=== PATIENT | female | born 1975 | race African-American/Black ===

== ENCOUNTER 2024-10-30 12:01 | Emergency (ER) | payer BC, MEDICAID ==
[~2024-10-30] VITALS: Ht 154.9 cm; Wt 64.0 kg
[~2024-10-30 12:01] MED LIST: APIX2.5T MT; FURO20TA4 MT; PANT20TA17 MT; PRAZ1CAP5 PO; PROP50TA3 MT; TRIA1TAB92 PO
[2024-10-30 12:09] VITALS: BP 158/82; TEMP 36.6; O2SAT 99
[2024-10-30 12:10] VITALS: PULSE 82; RESP 20; O2SAT 98
[2024-10-30 13:14] LABS: HEMATOCRIT. 37.6 % (36.0-48.0); HEMOGLOBIN. 12.1 g/dL (12.0-16.0); RED BLOOD CELL COUNT 4.44 mill/uL (4.2-5.4); WHITE BLOOD COUNT 5.5 x1000/uL (4.5-11.0)
[2024-10-30 13:15] LABS: BASOPHILS % 0.6 % (0.0-2.0); DIFFERENTIAL COMMENT 0; EOSINOPHILS % 1.2 % (0.0-5.0); LYMPHOCYTES % 34.2 % (20.0-50.0); MEAN CORPUSCULAR HEMOGLOBIN 27.2 pg (28.0-32.0); MEAN CORPUSCULAR HGB CONC 32.2 g/dL (31.0-37.0); MEAN CORPUSCULAR VOLUME 84.7 fL (81.0-99.0); MEAN PLATELET VOLUME 9.4 fl (7.4-10.4); MONOCYTES % 12.5 % (2.0-8.0); NEUTROPHILS % 51.5 % (40.0-76.0); PLATELET 222 x1000/uL (130-400); RED CELL DISTRIBUTION WIDTH 19.1 % (11.6-14.6)
[2024-10-30 13:26] LABS: INR 1.1; PARTIAL THROMBOPLASTIN TIME 26.2 sec (23.4-31.0); PROTHROMBIN TIME 11.6 sec (9.6-11.0)
[2024-10-30 13:30] LABS: CHLORIDE 101 mEq/L (98-107); POTASSIUM 3.3 mEq/L (3.5-5.1); SODIUM 139 mEq/L (136-145)
[2024-10-30 13:31] LABS: CALCIUM 9.6 mg/dL (8.7-10.4); CARBON DIOXIDE 28 mEq/L (21-32)
[2024-10-30 13:36] LABS: CREATININE 0.4 mg/dL (0.6-1.0); GLUCOSE 132 mg/dL (70-105); TROPONIN I HIGH SENSITIVITY 13 ng/L (3.0-34); UREA NITROGEN BLOOD 6 mg/dL (9-23)
[2024-10-30 13:37] LABS: ETHANOL BLOOD 75 mg/dL (<10)
[2024-10-30 13:38] LABS: ALANINE AMINOTRANSFERASE 29 IU/L (10-49); ALBUMIN 3.8 g/dL (3.2-4.8); ASPARTATE AMINOTRANSFERASE 54 IU/L (<34); BILIRUBIN DIRECT 0.8 mg/dL (<=3.0); BILIRUBIN TOTAL 1.3 mg/dL (0.1-1.0); PROTEIN TOTAL 8.4 g/dL (6.0-8.3)
[2024-10-30 13:41] LABS: THYROID STIMULATING HORMONE < 0.10 uIU/mL (0.55-4.78)
[2024-10-30 13:44] LABS: HCG SCREEN NEGATIVE
[2024-10-30 15:01] LABS: CLARITY URINE CLEAR (CLEAR); COLOR URINE YELLOW (YELLOW); PROTEIN URINE 1+ (NEGATIVE); SPECIFIC GRAVITY URINE <1.005 (1.005-1.030)
[2024-10-30 15:02] LABS: GLUCOSE URINE NEGATIVE (NEGATIVE); KETONES URINE NEGATIVE (NEGATIVE); LEUKOCYTE ESTERASE URINE NEGATIVE (NEGATIVE); NITRITE URINE NEGATIVE (NEGATIVE); OCCULT BLOOD URINE TRACE (NEGATIVE); UROBILINOGEN URINE 0.2 E.U./dL (0.2-1.0)
[2024-10-30] MEDS ORDERED: APIX2.5T MT (15:06)
[2024-10-30] MEDS ORDERED: PROP50TA3 MT (15:06)
[2024-10-30] MEDS ORDERED: FURO20TA4 MT (15:06)
[2024-10-30 15:39] LABS: BACTERIA URINE NONE SEEN; RBC URINE NONE SEEN /hpf (0-2); SQUAMOUS EPITHELIAL CELL URINE FEW /lpf (RARE/1+); WBC URINE 0-2 /hpf (0-2)
[2024-11-07] MEDS ORDERED: APIX2.5T PO (13:39)
[2024-11-07] MEDS ORDERED: PRAZ1CAP5 PO (13:39)
[2024-11-07] MEDS ORDERED: PROP50TA3 PO (13:39)
[2024-11-07] MEDS ORDERED: PANT20TA17 PO (13:39)
== END 2024-10-30 15:30 | disposition home or self-care (01) ==
LOC: ER 12:01
DX: I50.9 Heart failure, unspecified (principal); E05.90 Thyrotoxicosis, unspecified without thyrotoxic crisis or storm; F10.129 Alcohol abuse with intoxication, unspecified; I11.0 Hypertensive heart disease with heart failure; D64.9 Anemia, unspecified; Z79.899 Other long term (current) drug therapy; Z90.49 Acquired absence of other specified parts of digestive tract; Z88.0 Allergy status to penicillin; Y90.9 Presence of alcohol in blood, level not specified
CPT/HCPCS: 36415; 71045; 76705; 80048; 80076; 80320; 81003; 83880; 84443; 84484; 84703; 85025; 86850; 86900; 93005; 99285; G0480

== ENCOUNTER 2024-11-22 10:05 | Inpatient (IN) | payer MEDICAID ==
[~2024-11-22] VITALS: Ht 165.1 cm; Wt 70.3 kg
[~2024-11-22 10:05] MED LIST changes: -APIX2.5T MT; +APIX2.5T PO; -FURO20TA4 MT; -PANT20TA17 MT; +PANT20TA17 PO; -PROP50TA3 MT; +PROP50TA3 PO; -TRIA1TAB92 PO
[2024-11-22] MEDS: DILTIAZEM HCL 5MG/ML 5ML VIAL IV ONE (12:11)
[2024-11-22 12:12] LABS: BASOPHILS % 0.7 % (0.0-2.0); EOSINOPHILS % 0.1 % (0.0-5.0); HEMATOCRIT. 40.7 % (36.0-48.0); LYMPHOCYTES % 18.3 % (20.0-50.0); MEAN CORPUSCULAR HGB CONC 31.8 g/dL (31.0-37.0); MEAN PLATELET VOLUME 9.3 fl (7.4-10.4); MONOCYTES % 9.3 % (2.0-8.0); NEUTROPHILS % 71.6 % (40.0-76.0); PLATELET 236 x1000/uL (130-400); RED BLOOD CELL COUNT 4.79 mill/uL (4.2-5.4); RED CELL DISTRIBUTION WIDTH 18.8 % (11.6-14.6); WHITE BLOOD COUNT 8.4 x1000/uL (4.5-11.0)
[2024-11-22 12:30] LABS: CHLORIDE 106 mEq/L (98-107); POTASSIUM 4.6 mEq/L (3.5-5.1); SODIUM 140 mEq/L (136-145)
[2024-11-22 12:31] LABS: CARBON DIOXIDE 26 mEq/L (21-32)
[2024-11-22 12:32] LABS: CALCIUM 9.9 mg/dL (8.7-10.4)
[2024-11-22 12:35] LABS: INR 1.1; PARTIAL THROMBOPLASTIN TIME 27.9 sec (23.4-31.0); PROTHROMBIN TIME 11.9 sec (9.6-11.0)
[2024-11-22] MEDS: MORPHINE SULFATE 4 MG/ML INJ (FOR IV/IM USE) IV ONE (12:41)
[2024-11-22] MEDS: ONDANSETRON HCL 4MG/2ML INJ IV ONE (12:43)
[2024-11-22] MEDS ORDERED: DILTIAZEM HCL 60MG TABLET PO ONE (12:45)
[2024-11-22] MEDS ORDERED: MAGNESIUM/ALUMINUM HYDROXIDE/SIMETHICONE 30ML UDC PO PRN (14:15)
[2024-11-22] MEDS ORDERED: NA PHOS,M-B/NA PHOS,DI-BA ENEMA 118ML PR PRN (14:15)
[2024-11-22] MEDS ORDERED: ACETAMINOPHEN 325MG TABLET PO PRN (14:15)
[2024-11-22] MEDS ORDERED: DOCUSATE SODIUM 100MG CAPSULE PO PRN (14:15)
[2024-11-22] MEDS ORDERED: IPRATROPIUM/ALBUTEROL 0.5-3(2.5)MG/3ML NEB HHN PRN (14:15)
[2024-11-22] MEDS ORDERED: GUAIFENESIN 200MG/10ML SUGAR FREE UDC PO PRN (14:15)
[2024-11-22] MEDS ORDERED: HYDROCODONE/ACETAMINOPHEN 5/325MG TABLET PO PRN (14:15)
[2024-11-22] MEDS ORDERED: ENOXAPARIN 80MG/0.8ML SYR SUBCUT NR (14:30)
[2024-11-22] MEDS ORDERED: NALOXONE HCL 0.4MG/ML VIAL IV PRN (14:45)
[2024-11-22 14:55] LABS: CREATININE 0.6 mg/dL (0.6-1.0); GLUCOSE 99 mg/dL (70-105); UREA NITROGEN BLOOD 10 mg/dL (9-23)
[2024-11-22 14:56] LABS: ETHANOL BLOOD 86 mg/dL (<10); TROPONIN I HIGH SENSITIVITY 23 ng/L (3.0-34)
[2024-11-22 14:57] LABS: ALANINE AMINOTRANSFERASE 28 IU/L (10-49); ASPARTATE AMINOTRANSFERASE 61 IU/L (<34); BILIRUBIN DIRECT 0.4 mg/dL (<=3.0)
[2024-11-22 14:58] LABS: PROTEIN TOTAL 8.5 g/dL (6.0-8.3)
[2024-11-22 14:59] LABS: T4 FREE 2.68 ng/dL (0.89-1.76); THYROID STIMULATING HORMONE < 0.10 uIU/mL (0.55-4.78)
[2024-11-22] MEDS: ACETAMINOPHEN 325MG TABLET PO PRN (15:14)
[2024-11-22] MEDS ORDERED: DIAZEPAM 2 MG TABLET PO ONE (15:45)
[2024-11-22] MEDS ORDERED: LORAZEPAM 2MG/ML INJ IV PRN (15:45)
[2024-11-22] MEDS: PROPRANOLOL HCL 1MG/ML AMPULE IV NR (16:08)
[2024-11-22] MEDS: PROPYLTHIOURACIL 50MG TABLET PO SCH ×2 (16:22→20:43)
[2024-11-22 16:45] LABS: PHOSPHORUS 4.1 mg/dL (2.5-4.9)
[2024-11-22] MEDS: LORAZEPAM 2MG/ML INJ IV PRN (16:46)
[2024-11-22 19:13] LABS: CLARITY URINE CLEAR (CLEAR); COLOR URINE YELLOW (YELLOW); GLUCOSE URINE NEGATIVE (NEGATIVE); KETONES URINE NEGATIVE (NEGATIVE); LEUKOCYTE ESTERASE URINE NEGATIVE (NEGATIVE); NITRITE URINE NEGATIVE (NEGATIVE); OCCULT BLOOD URINE TRACE (NEGATIVE); PH URINE 5.5 (4.5-8.0); PROTEIN URINE 1+ (NEGATIVE); SPECIFIC GRAVITY URINE 1.012 (1.005-1.030); UROBILINOGEN URINE 0.2 E.U./dL (0.2-1.0)
[2024-11-22 19:33] LABS: *AMPHETAMINES SCREEN URINE PRESUMPTIVE POSITIVE (NEGATIVE); *BARBITURATES SCREEN URINE NEGATIVE (NEGATIVE); *BENZODIAZEPINES SCREEN URINE NEGATIVE (NEGATIVE)
[2024-11-22 19:34] LABS: *COCAINE SCREEN URINE NEGATIVE (NEGATIVE); CANNABINOID URINE SCREEN NEGATIVE (NEGATIVE); ECSTASY MDMA SCREEN URINE CONF.TEST INDICATED (NEGATIVE); METHADONE URINE SCREEN NEGATIVE (NEGATIVE); OPIATES URINE SCREEN PRESUMPTIVE POSITIVE (NEGATIVE); PHENCYCLIDINE URINE SCREEN NEGATIVE (NEGATIVE)
[2024-11-22 19:55] LABS: BACTERIA URINE NONE SEEN; HYALINE CASTS URINE 0-5 /lpf; SQUAMOUS EPITHELIAL CELL URINE NONE SEEN /lpf (RARE/1+); WBC URINE 0-2 /hpf (0-2)
[2024-11-22 19:56] LABS: RBC URINE 0-2 /hpf (0-2)
[2024-11-22 20:00] VITALS: BP 137/118; PULSE 77; RESP 20; TEMP 36.7; O2SAT 100
[2024-11-22] MEDS: MAGNESIUM 4 G PREMIX 100 ML IV NR (20:45)
[2024-11-22] MEDS: PROPRANOLOL HCL 10MG TABLET PO SCH (20:45)
[2024-11-22 20:47] VITALS: BP 208/148; PULSE 123; RESP 22; TEMP 36.7
[2024-11-22] MEDS ORDERED: PROPRANOLOL HCL 10MG TABLET PO SCH (21:00)
[2024-11-22 22:37] LABS: TROPONIN I HIGH SENSITIVITY 15 ng/L (3.0-34)
[2024-11-22] MEDS: MORPHINE SULFATE 2 MG/ML INJ (NOT FOR IM USE) IV PRN (23:10)
[2024-11-23] VITALS (15 sets, daily range): BP systolic 89–205; BP diastolic 55–174; PULSE 67–77; RESP 16–25; TEMP 36.2–36.8; O2SAT 94–99
[2024-11-23] MEDS: CLONIDINE 0.1MG TABLET PO PRN (00:07)
[2024-11-23] MEDS: DEXAMETHASONE 4MG/ML 1ML VIAL IV SCH (00:08)
[2024-11-23 00:42] LABS: TROPONIN I HIGH SENSITIVITY 15 ng/L (3.0-34)
[2024-11-23 00:43] LABS: CREATINE KINASE 279 IU/L (34-145)
[2024-11-23] MEDS: LOSARTAN 50 MG TABLET PO NR (03:47)
[2024-11-23] MEDS ORDERED: ENOXAPARIN 80MG/0.8ML SYR SUBCUT SCH (06:00)
[2024-11-23] MEDS: LORAZEPAM 2MG/ML UD SYRINGE IV PRN (06:00)
[2024-11-23] MEDS: ONDANSETRON HCL 4MG/2ML INJ IV PRN (06:00)
[2024-11-23] MEDS: ENOXAPARIN 60MG/0.6ML SYR SUBCUT SCH (07:28)
[2024-11-23] MEDS: PROPRANOLOL HCL 10MG TABLET PO SCH ×2 (08:40→21:00)
[2024-11-23] MEDS: PANTOPRAZOLE SODIUM 40 MG/VIAL IV SCH (09:14)
[2024-11-23] MEDS: FOLIC ACID 1 MG, THIAMINE HCL 100 MG, MVI, ADULT NO.1 10 ML in DEXTROSE 5% WATER 1,000 ML IV ONE (12:50)
[2024-11-23 14:21] LABS: BASOPHILS % 0.2 % (0.0-2.0); HEMATOCRIT. 38.6 % (36.0-48.0); HEMOGLOBIN. 12.1 g/dL (12.0-16.0); LYMPHOCYTES % 16.9 % (20.0-50.0); MEAN CORPUSCULAR HEMOGLOBIN 26.4 pg (28.0-32.0); MEAN CORPUSCULAR HGB CONC 31.4 g/dL (31.0-37.0); MEAN PLATELET VOLUME 9.5 fl (7.4-10.4); MONOCYTES % 1.7 % (2.0-8.0); NEUTROPHILS % 81.2 % (40.0-76.0); PLATELET 178 x1000/uL (130-400); RED BLOOD CELL COUNT 4.59 mill/uL (4.2-5.4); RED CELL DISTRIBUTION WIDTH 18.9 % (11.6-14.6); WHITE BLOOD COUNT 3.3 x1000/uL (4.5-11.0)
[2024-11-23 14:29] LABS: CARBON DIOXIDE 23 mEq/L (21-32); CHLORIDE 100 mEq/L (98-107); POTASSIUM 4.4 mEq/L (3.5-5.1); SODIUM 133 mEq/L (136-145)
[2024-11-23 14:34] LABS: CREATININE 0.5 mg/dL (0.6-1.0); TROPONIN I HIGH SENSITIVITY 9 ng/L (3.0-34)
[2024-11-23 14:35] LABS: GLUCOSE 138 mg/dL (70-105); UREA NITROGEN BLOOD 9 mg/dL (9-23)
[2024-11-23 14:37] LABS: CREATINE KINASE 145 IU/L (34-145)
[2024-11-23] MEDS: HYDRALAZINE 20MG/ML VIAL IV PRN (17:31)
[2024-11-23] MEDS: AMLODIPINE 10MG TABLET PO SCH (18:16)
[2024-11-23] MEDS: DEXT 5%/LACTATED RINGERS 1,000 ML IV SCH (18:17)
[2024-11-23] MEDS: LISINOPRIL 20MG TABLET PO SCH (18:17)
[2024-11-23] MEDS: PRAZOSIN HCL 1MG CAPSULE PO SCH (20:40)
[2024-11-23] MEDS: PROPYLTHIOURACIL 50MG TABLET PO SCH (20:41)
[2024-11-23] MEDS: METRONIDAZOLE 500 MG PREMIX 100 ML IV SCH (20:47)
[2024-11-23] MEDS: CEFTRIAXONE 1GM/50ML 50 ML IV SCH (20:47)
[2024-11-24] VITALS (11 sets, daily range): BP systolic 96–133; BP diastolic 53–90; PULSE 65–75; RESP 14–26; TEMP 36.2–36.9; O2SAT 89–100
[2024-11-24] MEDS ORDERED: PROPRANOLOL HCL 10MG TABLET PO SCH
[2024-11-24 12:45] LABS: HEMATOCRIT. 37.6 % (36.0-48.0); HEMOGLOBIN. 11.8 g/dL (12.0-16.0); MEAN CORPUSCULAR HEMOGLOBIN 26.8 pg (28.0-32.0); MEAN CORPUSCULAR HGB CONC 31.3 g/dL (31.0-37.0); MEAN CORPUSCULAR VOLUME 85.4 fL (81.0-99.0); MEAN PLATELET VOLUME 9.9 fl (7.4-10.4); PLATELET 176 x1000/uL (130-400); RED CELL DISTRIBUTION WIDTH 18.8 % (11.6-14.6); WHITE BLOOD COUNT 7.6 x1000/uL (4.5-11.0)
[2024-11-24 12:51] LABS: DIFFERENTIAL COMMENT 1
[2024-11-24 13:04] LABS: CALCIUM 7.7 mg/dL (8.7-10.4); CARBON DIOXIDE 14 mEq/L (21-32)
[2024-11-24 13:09] LABS: CREATININE 0.5 mg/dL (0.6-1.0); GLUCOSE 146 mg/dL (70-105); UREA NITROGEN BLOOD 9 mg/dL (9-23)
[2024-11-24 13:11] LABS: ALANINE AMINOTRANSFERASE 17 IU/L (10-49); ALBUMIN 2.7 g/dL (3.2-4.8); ASPARTATE AMINOTRANSFERASE 34 IU/L (<34); BILIRUBIN DIRECT 0.5 mg/dL (<=3.0); PROTEIN TOTAL 5.9 g/dL (6.0-8.3)
[2024-11-24] MEDS: PROPRANOLOL HCL 10MG TABLET PO SCH (13:38)
[2024-11-24 15:22] LABS: GLUCOSE URINE NEGATIVE (NEGATIVE); KETONES URINE TRACE (NEGATIVE); LEUKOCYTE ESTERASE URINE 3+ (NEGATIVE); NITRITE URINE NEGATIVE (NEGATIVE); OCCULT BLOOD URINE NEGATIVE (NEGATIVE); PROTEIN URINE NEGATIVE (NEGATIVE)
[2024-11-24 16:30] LABS: CLARITY URINE HAZY (CLEAR); COLOR URINE YELLOW (YELLOW)
[2024-11-24 16:31] LABS: BACTERIA URINE TRACE; RBC URINE NONE SEEN /hpf (0-2); SQUAMOUS EPITHELIAL CELL URINE FEW /lpf (RARE/1+)
[2024-11-24 16:56] LABS: CHLORIDE 103 mEq/L (98-107); POTASSIUM 4.5 mEq/L (3.5-5.1); SODIUM 133 mEq/L (136-145)
[2024-11-24] MEDS: KETOROLAC 15MG/ML VIAL IV PRN (18:22)
[2024-11-24 18:24] LABS: PLATELET ESTIMATE NORMAL
[2024-11-24 19:43] LABS: THYROID STIMULATING HORMONE < 0.10 uIU/mL (0.55-4.78)
[2024-11-25] VITALS: BP 131/70; PULSE 67; RESP 15; TEMP 36.7; O2SAT 98
[2024-11-25 04:00] VITALS: BP 132/67; PULSE 56; RESP 18; TEMP 36.6; O2SAT 99
[2024-11-25 06:52] LABS: CALCIUM 9.1 mg/dL (8.7-10.4); CARBON DIOXIDE 25 mEq/L (21-32); CHLORIDE 104 mEq/L (98-107); SODIUM 135 mEq/L (136-145)
[2024-11-25 06:58] LABS: CREATININE 0.6 mg/dL (0.6-1.0); GLUCOSE 132 mg/dL (70-105); UREA NITROGEN BLOOD 18 mg/dL (9-23)
[2024-11-25 07:04] LABS: HEMATOCRIT. 36.6 % (36.0-48.0); HEMOGLOBIN. 11.8 g/dL (12.0-16.0); LYMPHOCYTES % 8.5 % (20.0-50.0); MEAN CORPUSCULAR HEMOGLOBIN 27.1 pg (28.0-32.0); MEAN CORPUSCULAR HGB CONC 32.4 g/dL (31.0-37.0); MEAN CORPUSCULAR VOLUME 83.6 fL (81.0-99.0); MEAN PLATELET VOLUME 9.3 fl (7.4-10.4); MONOCYTES % 7.4 % (2.0-8.0); NEUTROPHILS % 84.1 % (40.0-76.0); PLATELET 163 x1000/uL (130-400); RED BLOOD CELL COUNT 4.37 mill/uL (4.2-5.4); RED CELL DISTRIBUTION WIDTH 18.5 % (11.6-14.6); WHITE BLOOD COUNT 9.8 x1000/uL (4.5-11.0)
[2024-11-25 08:00] VITALS: BP 127/71; PULSE 58; RESP 18; TEMP 36.4; O2SAT 98
[2024-11-25] MEDS: FAMOTIDINE 20MG/2ML VIAL IV SCH (11:00)
[2024-11-25] MEDS: HYDROCORTISONE 10MG TABLET PO SCH (14:33)
[2024-11-25 16:00] VITALS: BP 150/79; PULSE 60; RESP 22; TEMP 36.7; O2SAT 95
[2024-11-25 20:00] VITALS: BP 125/67; PULSE 58; RESP 18; TEMP 36.4; O2SAT 97
[2024-11-25 20:56] LABS: TROPONIN I HIGH SENSITIVITY 8 ng/L (3.0-34)
[2024-11-25] MEDS: COSYNTROPIN 0.25MG/ML VIAL IV NR (22:45)
[2024-11-26] VITALS: BP 123/66; PULSE 59; RESP 20; TEMP 36.4; O2SAT 96
[2024-11-26 04:00] VITALS: BP 145/76; PULSE 56; RESP 20; TEMP 36.5; O2SAT 98
[2024-11-26 06:26] LABS: BASOPHILS % 0.2 % (0.0-2.0); EOSINOPHILS % 0.2 % (0.0-5.0); HEMATOCRIT. 37.4 % (36.0-48.0); LYMPHOCYTES % 17.7 % (20.0-50.0); MEAN CORPUSCULAR HEMOGLOBIN 26.9 pg (28.0-32.0); MEAN CORPUSCULAR HGB CONC 32.2 g/dL (31.0-37.0); MEAN CORPUSCULAR VOLUME 83.7 fL (81.0-99.0); MEAN PLATELET VOLUME 8.8 fl (7.4-10.4); MONOCYTES % 9.3 % (2.0-8.0); NEUTROPHILS % 72.6 % (40.0-76.0); PLATELET 171 x1000/uL (130-400); RED BLOOD CELL COUNT 4.46 mill/uL (4.2-5.4); RED CELL DISTRIBUTION WIDTH 17.9 % (11.6-14.6); WHITE BLOOD COUNT 5.9 x1000/uL (4.5-11.0)
[2024-11-26 06:51] LABS: CARBON DIOXIDE 25 mEq/L (21-32); CHLORIDE 105 mEq/L (98-107); POTASSIUM 4.2 mEq/L (3.5-5.1); SODIUM 136 mEq/L (136-145)
[2024-11-26 06:52] LABS: CALCIUM 8.9 mg/dL (8.7-10.4)
[2024-11-26 06:57] LABS: CREATININE 0.6 mg/dL (0.6-1.0); GLUCOSE 167 mg/dL (70-105); UREA NITROGEN BLOOD 13 mg/dL (9-23)
[2024-11-26 07:02] LABS: FOLIC ACID (FOLATE) SERUM 9.56 ng/mL (>5.38); VITAMIN B12 SERUM 794 pg/mL (211-911)
[2024-11-26 08:00] VITALS: BP 141/70; PULSE 65; RESP 16; TEMP 36.1; O2SAT 97
[2024-11-26 12:00] VITALS: BP 153/79; PULSE 49; RESP 18; TEMP 36.4; O2SAT 100
[2024-11-26] MEDS ORDERED: PROP50TA3 PO (14:23)
[2024-11-26] MEDS ORDERED: HYDR5TAB13 PO (14:23)
[2024-11-26] MEDS ORDERED: HYDR-4379 PO (14:23)
[2024-11-26 18:13] VITALS: BP 141/79; PULSE 79; TEMP 97.6; O2SAT 97
== END 2024-11-26 19:30 | disposition home or self-care (01) | DRG 812 ==
LOC: ER 10:14 → 8WST 13:32 → EDBEDREQ 13:33 → 5EST 11-23 00:29 → 7WST 11-25 02:18
PROVIDERS: ADMIT Internal Medicine; ATTEND Internal Medicine
DX: T43.621A Poisoning by amphetamines, accidental (unintentional), initial encounter (principal); G92.8 Other toxic encephalopathy; E05.01 Thyrotoxicosis with diffuse goiter with thyrotoxic crisis or storm; E46 Unspecified protein-calorie malnutrition; K80.00 Calculus of gallbladder with acute cholecystitis without obstruction; I48.91 Unspecified atrial fibrillation; E27.40 Unspecified adrenocortical insufficiency; I16.0 Hypertensive urgency; F10.129 Alcohol abuse with intoxication, unspecified; I10 Essential (primary) hypertension; E21.3 Hyperparathyroidism, unspecified; D64.9 Anemia, unspecified; F41.9 Anxiety disorder, unspecified; R73.9 Hyperglycemia, unspecified; E03.9 Hypothyroidism, unspecified; Y90.4 Blood alcohol level of 80-99 mg/100 ml; Z68.25 Body mass index [BMI] 25.0-25.9, adult; Z79.899 Other long term (current) drug therapy; Z79.01 Long term (current) use of anticoagulants; Z80.8 Family history of malignant neoplasm of other organs or systems; Z88.0 Allergy status to penicillin; Z90.49 Acquired absence of other specified parts of digestive tract; F15.988 Other stimulant use, unspecified with other stimulant-induced disorder
CPT/HCPCS: 36415; 70553; 71045; 74177; 76700; 78227; 80048; 80076; 80305; 80320; 81003; 82024; 82088; 82306; 82533; 82550; 82607; 82746; 83036; 83520; 83605; 83735; 83835; 83880; 84100; 84145; 84244; 84439; 84443; 84481; 84484; 85025; 93005; 99291; A4606; A9537; A9577; J0360; J0696; J0834; J1100; J1650; J1800; J1885; J2060; J2270; J2405; J2470; J3411; J3475; J3490; J7070; J7121; Q9967; G0480